=== PATIENT | male | born 1940 | race Caucasian/White ===

== ENCOUNTER 2024-11-25 14:25 | Outpatient (AMB) | payer OTHER, SELFPAY ==
--- NOTE | 2024-11-25 14:53 | A.OFFVIS_ITS ---
Vital Signs 11/25/24 14:55 Height 5 ft 6 in Weight 128 lb 6 oz BMI 20.7 BP 122/78 Blood Pressure Location Lt brachial Position Sitting Pulse 94 Pulse Source Pulse Oximeter Pulse Oximetry (%) 96 Oxygen Delivery Method Room Air Intake Visit Reasons: ENP - Snoring, Fatigue, Daytime Sleepiness Intake Note: Patient presents JAVA APPLICATION ENGINEER Snoring, fatigue. Patient states has noticed apnea and gasping in sleep. No history of sleep studies. Patient states goes to bed around 11-12 and wakes up around 7. wakes up around 3x a night. Patient having septum surgery 12/31 Accompanied by: Self / Same As Patient Allergies bupropion Allergy (Unknown, Verified 11/25/24 14:58) Unknown Penicillins Allergy (Unknown, Verified 11/25/24 14:58) Unknown HPI Comments Details: 84 yo male referred to us for a sleep evaluation. Dr. Rakesh Sheehan from [facility] in [place], [place]. He is a [place] with exposure to neurotoxins. He goes to sleep at 11pm and gets up at 7am with 2 bathroom breaks. 2023 he had a terrible sinus infection as the weather became warmer it became worse, after CTscan, he was dx with deviated septum. L. nare is blocked per ENT, and will be followed up with surgical procedure, Dec 31, septoplasty. He has rx ipratopium bromide, spray 2 sprays in each nostril. He takes eszopiclone for anxiety and takes buspirone 5mg. TID He snores loudly and he has pauses in breathing at night. He denies grinding of teeth, and denies morning headaches. Mood and memory stable. His diet is excellent, he cooks an all organic food diet. He walks daily, denies gait and balance difficulty, has hearing aids bilaterally and vision is stable. [facility] Medical History (Updated 11/26/24 @ 21:18 by Gerri Ralph PA-C) Allergic rhinitis Fatigue Dyslipidemia GERD (gastroesophageal reflux disease) Leukopenia Hyperkeratosis Cluster headaches Stress incontinence (female) (male) Sleep related leg cramps Pure hypercholesterolemia, unspecified Pain in unspecified limb Pain in right shoulder Other malaise and fatigue Other lactose intolerance Other allergic rhinitis Pain in joint, lower leg Generalized anxiety disorder Flexion deformity, unspecified ankle and toes Deviated nasal septum Decreased white blood cell count, unspecified Decreased libido Corns and callosities Family History (Updated 11/18/24 @ 09:42 by HUNTER Pace) Father Colon cancer Mother Alzheimer's dementia Social History (Updated 11/18/24 @ 09:42 by HUNTER Pace) Alcohol intake: current Alcohol intake frequency: a few times a week Patient Tobacco Use Status: Never used Tobacco e-Cigarette/Vaping Use: Never Used Physical Exam Vital Signs: Last Vital Signs Pulse 94 11/25/24 14:55 BP 122/78 11/25/24 14:55 Pulse Ox 96 11/25/24 14:55 Oxygen Delivery Method Room Air 11/25/24 14:55 BMI result Body Mass Index 20.7 Const General: cooperative, comfortable and no acute distress Orientation/consciousness: patient oriented x3 Eyes Pupils: Equal, round and reactive pupils present Resp Effort & Inspection: normal respiratory effort and able to speak in complete sentences Neuro General: patient oriented x3 and moves all extremities Cranial nerves: Yes Facial sensation intact/muscles of mastication intact, Yes Equal, round and reactive pupils present, Yes Normal accommodation reflex present, Yes Normal facial strength present, Yes Midline tongue present, Yes Ability to bilaterally rotate head present and Yes Ability to bilaterally elevate shoulders present Cognition (Neuro): normal cognition Gait exam (Neuro): Normal gait present Motor exam (neuro): 5/5 motor strength present throughout and Normal motor muscle tone present throughout Psych Appearance: grossly normal Mental Status: mental status grossly normal Thought process: Normal thought process present Assessment & Plan Assessment & Plan (1) Excessive daytime and night-time sleepiness: Code(s): G47.19 - Other hypersomnia Category: Medical (2) Fatigue: Code(s): R53.83 - Other fatigue Category: Medical Qualifiers: Fatigue type: chronic, unspecified Qualified Code(s): R53.82 - Chronic fatigue, unspecified (3) History of deviated nasal septum: Comment: septoplasty 12/2024 [place] Code(s): Z87.09 - Personal history of other diseases of the respiratory system Category: Medical Plan HST r/o magali Chronic fatigue with excessive daytime sleep[facility] Orders: Orders RT home sleep study 11/25/24 G47.19 - Other hypersomnia, R53.83 - Other fatigue Patient Instructions: Sleep Hygiene provided: set a scheduled bedtime and wake time to help regulate the circadian rhythm and balance the release of pituitary hormones. Sleep in a dark room, temperatures below 68 degrees, and no devices n bed. Limit caffeinated products 6 hours prior to bed, and limit fluids 2-4 hours prior to bed. Gentle night yoga, diffusing essential oils, and playing soft music can be relaxing. Coding Level of Care Code New Pt Level 4 (06359) Diagnoses Excessive daytime and night-time sleepiness G47.19 Chronic fatigue R53.82 Fatigue type: chronic, unspecified History of deviated nasal septum Z87.09 Sleep Questionnaire Difficulty falling asleep: No Difficulty staying asleep?: No Number of arousals: 2-3 Snoring: Yes Witnessed apneas: Yes Gasping arousals: Yes Nocturia: No GERD: No Vivid dreams: No Acting out dreams: No Abnormal behavior in sleep: No Abnormal movements in sleep: No Morning headaches: No Excessive daytime sleepiness: Yes Daytime naps: No Restless legs: No Hallucinations: No Sleep paralysis: No Drop attacks: No Sleep Study: No CPAP: No
[2024-11-25 14:55] VITALS: BP 122/78; PULSE 94; O2SAT 96; BMI 20.7
--- OUTSIDE RECORDS SUMMARY | 2024-11-25 15:19 | XMS_ITS | Clinical Summary ---
Author Organization [facility] Address [facility] [place] [address] Care Team Providers Care Sheep Herder Name Role Phone Lazara Ortiz MD Primary Care Provider [phone] Allergies Active Allergy Reactions Criticality Noted Date Comments Bee Pollen 09/10/2013 Penicillins 09/10/2013 Medications lovastatin (MEVACOR) 20 mg tablet Take 20 mg by mouth nightly. Active pantoprazole (PROTONIX) 40 mg tablet Take 40 mg by mouth daily. Active Ascorbic Acid 500 mg Chew Take 1,000 mg by mouth daily. Active multivitamin (THERAGRAN) tablet Take 1 tablet by mouth daily. Active Zinc 50 mg Tab Take 50 mg by mouth. Active Active Problems Problem Noted Date Diagnosed Date Chronic nausea 09/10/2013 Dyspepsia 09/10/2013 Eosinophilic esophagitis 09/10/2013 Social History Tobacco Use Types Packs/Day Years Used Date Smoking Tobacco: Never Cigarettes Comments:Quit at age 22 Alcohol Use Standard Drinks/Week Comments No 0 (1 standard drink = 0.6 oz pure alcohol) Quit alcohol 8 months ago; was drinking occasionally Sex and Gender Information Value Date Recorded Sex Assigned at Not on file Legal Sex Male 8:56 AM EDT Gender Identity Not on file Sexual Orientation Not on file Last Filed Vital Signs Vital Sign Reading Time Taken Comments Blood Pressure 109/74 09/15/2013 2:01 PM EDT Pulse 82 09/15/2013 2:01 PM EDT Temperature 36.2 C (97.2 F) 09/15/2013 12:58 PM EDT Respiratory Rate 18 09/15/2013 2:01 PM EDT Oxygen Saturation 93% 09/15/2013 2:01 PM EDT Inhaled Oxygen Concentration - - Weight 66.2 kg (146 lb) 09/10/2013 12:02 PM EDT Height 167.6 cm (5' 6 ) 09/10/2013 12:02 PM EDT Body Mass Index 23.57 09/10/2013 12:02 PM EDT Plan of Treatment Health Maintenance Due Date Last Done Comments Tetanus/Diphtheria/Pertussis Vaccines (1 - Tdap) 10/12 Pneumoccocal Vaccine: 50+ (1 of 1 - PCV) 10/13/1991 Zoster vaccine (1 of 2) 10/13/1991 Advance Directive 1996 RSV Vaccine (1 - 1-dose 75+ series) 2016 Covid-19 Vaccine (1 - season) 2023 Influenza (Flu) vaccine (1 o f 1 - Influenza standard series) 12/15/2024 Care Teams Sheep Herder Relationship Specialty Start Date End Date Lazara Ortiz MD [address] [place] [id number] PCP - General 09/11/13
== END 2024-11-25 15:53 | disposition home or self-care (01) ==
PROVIDERS: Visit Provider Physician Assistant Medical
DX: G47.19 Other hypersomnia (principal); R53.82 Chronic fatigue, unspecified; Z87.09 Personal history of other diseases of the respiratory system
CPT/HCPCS: 99204

== ENCOUNTER → 2024-11-25 14:25 | Outpatient (BNVA) | payer OTHER, SELFPAY | PROVIDERS: Visit Provider Physician Assistant Medical | DX: G47.19 Other hypersomnia (principal); R53.82 Chronic fatigue, unspecified; Z87.09 Personal history of other diseases of the respiratory system | CPT/HCPCS: 99202 ==

== ENCOUNTER 2025-02-27 14:15 | Outpatient (AMB) | payer OTHER, SELFPAY ==
--- NOTE | 2025-02-27 14:24 | MHC.OFFVIS ---
Vital Signs 02/27/25 14:25 Height 5 ft 6 in Weight 151 lb BMI 24.4 BP 126/82 Blood Pressure Location Rt brachial Position Sitting Pulse 96 Pulse Source Pulse Oximeter Pulse Oximetry (%) 95 Oxygen Delivery Method Room Air Intake Visit Reasons: Follow up Intake Note: Patient presents follow up DARREL. HST done through [facility] Allergies bupropion Allergy (Unknown, Verified 02/27/25 14:28) Unknown Penicillins Allergy (Unknown, Verified 02/27/25 14:28) Unknown HPI Comments Details: 84 yo male referred to us for a sleep evaluation by Dr. Rakesh Sheehan from [facility] in [place], [place]. Sleep study is pending from the [facility]. Per his PCP he has mild DARREL. He would like the [employer] 360 nose pillows. He is a [place] with exposure to neurotoxins. He goes to sleep at 11pm and gets up at 7am with with multiple night time arousals due wheezing, coughing, breathing has improved since Septoplasty in Dec 2024 due to deviated septum. He snores loudly and has pauses in breathing at night per his . He has rx ipratopium bromide, spray 2 sprays in each nostril as needed. He takes eszopiclone for insomnia and Buspirone 5mg po TID for anxiety. Mood and memory stable. His diet is excellent, he cooks an all organic food diet. He walks daily, does meka-chi, denies gait and balance difficulty, has hearing aids bilaterally and vision is stable. He denies headaches, GERD, N/V, RLS symptoms. [facility] Medical History Allergic rhinitis Fatigue Dyslipidemia GERD (gastroesophageal reflux disease) Leukopenia Hyperkeratosis Cluster headaches Stress incontinence (female) (male) Sleep related leg cramps Pure hypercholesterolemia, unspecified Pain in unspecified limb Pain in right shoulder Other malaise and fatigue Other lactose intolerance Other allergic rhinitis Pain in joint, lower leg Generalized anxiety disorder Flexion deformity, unspecified ankle and toes Deviated nasal septum Decreased white blood cell count, unspecified Decreased libido Corns and callosities Family History Father Colon cancer Mother Alzheimer's dementia Social History Alcohol intake: current Alcohol intake frequency: a few times a week Patient Tobacco Use Status: Never used Tobacco e-Cigarette/Vaping Use: Never Used Physical Exam Vital Signs: Last Vital Signs Pulse 96 02/27/25 14:25 BP 126/82 02/27/25 14:25 Pulse Ox 95 02/27/25 14:25 Oxygen Delivery Method Room Air 02/27/25 14:25 BMI result Body Mass Index 24.4 Const General: cooperative, comfortable and no acute distress Orientation/consciousness: patient oriented x3 Eyes Pupils: Equal, round and reactive pupils present Resp Effort & Inspection: normal respiratory effort and able to speak in complete sentences Neuro General: patient oriented x3 and moves all extremities Cranial nerves: Yes Facial sensation intact/muscles of mastication intact, Yes Equal, round and reactive pupils present, Yes Normal accommodation reflex present, Yes Normal facial strength present, Yes Midline tongue present, Yes Ability to bilaterally rotate head present and Yes Ability to bilaterally elevate shoulders present Cognition (Neuro): normal cognition Gait exam (Neuro): Normal gait present Motor exam (neuro): 5/5 motor strength present throughout and Normal motor muscle tone present throughout Psych Appearance: grossly normal Mental Status: mental status grossly normal Thought process: Normal thought process present Thought content: Normal thought content present Insight: Good insight present (Psych) Assessment & Plan Assessment & Plan (1) Excessive daytime and night-time sleepiness: Code(s): G47.19 - Other hypersomnia Category: Medical (2) Fatigue: Code(s): R53.83 - Other fatigue Category: Medical Qualifiers: Fatigue type: chronic, unspecified Qualified Code(s): R53.82 - Chronic fatigue, unspecified (3) History of deviated nasal septum: Comment: septoplasty 12/2024 [place] Code(s): Z87.09 - Personal history of other diseases of the respiratory system Category: Medical Plan Pending HST results from [facility] for mild darrel, [facility] a freedom nasal pillow mask. Chronic fatigue with excessive daytime sleepiness request labs from [facility] F/U in 4 months. Patient Instructions: Sleep Hygiene provided: set a scheduled bedtime and wake time to help regulate the circadian rhythm and balance the release of pituitary hormones. Sleep in a dark room, temperatures below 68 degrees, and no devices n bed. Limit caffeinated products 6 hours prior to bed, and limit fluids 2-4 hours prior to bed. Gentle night yoga, diffusing essential oils, and playing soft music can be relaxing. Coding Level of Care Code Est Pt Level 4 (21881) Diagnoses Excessive daytime and night-time sleepiness G47.19 Chronic fatigue R53.82 Fatigue type: chronic, unspecified History of deviated nasal septum Z87.09
[2025-02-27 14:25] VITALS: BP 126/82; PULSE 96; O2SAT 95; BMI 24.4
--- OUTSIDE RECORDS SUMMARY | 2025-02-27 21:14 | XMS_ITS | Clinical Summary ---
Author Organization [facility] Address [facility] [place] [address] Care Team Providers Care Patternmaker Wood Name Role Phone Lazara Ortiz MD Primary Care Provider [phone] Allergies Active Allergy Reactions Criticality Noted Date [...] 75+ series) 2016 Covid-19 Vaccine (1 - 2024- season) 2024 Influenza (Flu) vaccine (1 o f 1 - Influenza standard series) 12/15/2024 Care Teams Patternmaker Wood Relationship Specialty Start Date End Date Lazara Ortiz MD [address] [place] [id number] PCP - General 09/11/13
== END 2025-02-27 15:02 | disposition home or self-care (01) ==
LOC: HO.HSMS 14:16
PROVIDERS: Visit Provider Physician Assistant Medical
DX: G47.19 Other hypersomnia (principal); R53.82 Chronic fatigue, unspecified; Z87.09 Personal history of other diseases of the respiratory system
CPT/HCPCS: 99214

== ENCOUNTER → 2025-02-27 14:15 | Outpatient (BNVA) | payer OTHER, SELFPAY | PROVIDERS: Visit Provider Physician Assistant Medical | DX: G47.19 Other hypersomnia (principal); G47.00 Insomnia, unspecified; F41.9 Anxiety disorder, unspecified; Z79.899 Other long term (current) drug therapy; Z87.09 Personal history of other diseases of the respiratory system | CPT/HCPCS: 99212 ==